=== PATIENT | male | born 1945 | race Caucasian/White ===

== ENCOUNTER 2017-06-27 12:44 | Outpatient (POV) | payer MEDICARE, BC, SELFPAY | END 2017-06-27 15:34 | disposition home or self-care (01) | PROVIDERS: Family Provider Family Medicine; PCP Family Medicine; Visit Provider Urology | DX: N40.1 Benign prostatic hyperplasia with lower urinary tract symptoms (principal); R33.8 Other retention of urine | CPT/HCPCS: 81002; 99213 ==

== ENCOUNTER 2017-07-08 19:47 | Day surgery (SDC) | payer MEDICARE, SELFPAY ==
[2017-07-08 19:57] VITALS: BP 127/79; PULSE 78; RESP 15; TEMP 36.8; O2SAT 93; BMI 21.8
--- NOTE | 2017-07-08 20:13 | XR_ITS ---
XR knee LT 3V HISTORY: Pain following injury ITS.REASON: pain ORDERING PHYSICIAN: Harjeet Pedro MD PATIENT AGE: 72 years COMPARISON: None FINDINGS: No obvious acute fracture or dislocation is evident. There are mild to moderate osteoarthritic changes involving all 3 compartments. Multiple lobular areas of increased density are present along the anterior aspect of the knee in the infrapatellar region consistent with foreign bodies. There is laceration involving the soft tissues at the prepatellar region with overlying bandage artifact. Chondrocalcinosis involves the menisci. IMPRESSION: 1. Multiple foreign bodies in the infrapatellar region with laceration at the prepatellar area. 2. Osteoarthritis. 3. No obvious acute fracture.
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
--- NOTE | 2017-07-08 21:01 | PC.NURSE ---
DR TAYLOR CALLED AND CASE DISCUSSED. DR TAYLOR TO SEE PATIENT
--- NOTE | 2017-07-08 21:13 | XR_ITS ---
XR chest 2V HISTORY: Tobacco use, chest pain ITS.REASON: chest pain ORDERING PHYSICIAN: Harjeet Pedro MD PATIENT AGE: 72 years COMPARISON: 12/09/2014 FINDINGS: The cardiomediastinal silhouette and pulmonary vascularity are within normal limits. Hyperinflation with coarsening of the bronchovascular markings consistent smoking-related lung disease/COPD. There is evidence of old granulomatous disease.. No lobar consolidation or collapse. Degenerative change thoracic spine. No acute bony anomalies of the chest.. IMPRESSION: COPD, no change with no acute finding
--- NOTE | 2017-07-08 21:32 | PC.NURSE ---
DR TAYLOR HERE TO SEE PATIENT . CALLING IN SURGICAL TEAM FOR PATIENT
--- NOTE | 2017-07-08 22:22 | PC.NURSE ---
[phone] - OR team paged per Dr Pedro [phone] - process control tech and Nursing Informatics Clinical Analyst called back. [phone] - anesthesia returned page.
--- NOTE | 2017-07-08 22:28 | PC.NURSE ---
TO SURGERY PER STRETCHER
[2017-07-08 23:40] VITALS: BP 142/47; PULSE 95; RESP 16; TEMP 36.1; O2SAT 95
[2017-07-08 23:50] VITALS: BP 132/87; PULSE 96; RESP 22; O2SAT 90
--- NOTE | 2017-07-08 23:55 | HMH.ANESCL ---
[facility] Anesthesia Checklist - Patient Identification Patient Identification: Arm Band - Structural Data Admitted From: Home Planned Operative Procedure/s: I&D Left leg laceration Consent for Planned Operative Procedure(s) Verified: Yes Verified Documents: Surgical Consent, History and Physical - NPO Status Verified Time NPO: 18:30 (>6 hrs for solids, 5 beers ~3 hrs prior to surgery) - Additional verifications Anesthesia Reactions: No - Airway Assessment C-Spine Mobility Assessed: Yes (MP2) TMJ Mobility Assessed: Yes Dentition: Edentulous - Anesthesia Plan Anesthesia Risk discussed: Yes Anesthesia Plan: Verified ASA Class: III Anesthesia Type: General - Preoperative Comments Pre-Operative Comments: E [facility] Anesthesia HX I have reviewed the patient's past medical history: Yes Medical History: Reports:: Chronic Obstructive Pulmonary Disease (COPD) Denies:: Cancer, Diabetes Mellitus Type 1, Diabetes Mellitus Type 2, MRSA Other Surgeries: Yes: Other (Gallbladder and Low back surgery) Amputation: No
--- NOTE | 2017-07-08 23:59 | P.PN_ITS ---
[facility] Anesthesia Checklist - Patient Identification Patient Identification: Arm Band - Structural Data Admitted From: Home Planned Operative Procedure/s: I&D Left leg laceration Consent for Planned Operative Procedure(s) Verified: Yes Verified Documents: Surgical Consent, History and Physical - NPO Status Verified Time NPO: 18:30 (>6 hrs for solids, 5 beers ~3 hrs prior to surgery) - Additional verifications Anesthesia Reactions: No - Airway Assessment C-Spine Mobility Assessed: Yes (MP2) TMJ Mobility Assessed: Yes Dentition: Edentulous - Anesthesia Plan Anesthesia Risk discussed: Yes Anesthesia Plan: Verified ASA Class: III Anesthesia Type: General - Preoperative Comments Pre-Operative Comments: E [facility] Anesthesia HX I have reviewed the patient's past medical history: Yes Medical History: Reports:: Chronic Obstructive Pulmonary Disease (COPD) Denies:: Cancer, Diabetes Mellitus Type 1, Diabetes Mellitus Type 2, MRSA Other Surgeries: Yes: Other (Gallbladder and Low back surgery) Amputation: No
[2017-07-09] VITALS (7 sets, daily range): BP systolic 124–146; BP diastolic 47–110; PULSE 77–95; RESP 16–21; TEMP 36.1–36.2; O2SAT 92–96
--- NOTE | 2017-07-09 00:01 | P.PN_ITS ---
[facility] Anesthesia Record Part I Intake, IV Amount: 1,300 Estimated blood loss (mL): 10 Urine output (mL): 0 Blood Pressure: 142/47 SaO2: 95 Pulse Rate: 95 Respiratory Rate: 16 Temperature: 97 F Patient is:: Drowsy, Stable Stable to PACU at:: 23:40
--- NOTE | 2017-07-09 00:01 | HMH.ANESII ---
[facility] Anesthesia Record Part II Discharge Time: 00:10 Destination: [facility] PACU nurse assessment reviewed?: Yes Patient Condition:: Good Anesthesia Complications:: None
--- NOTE | 2017-07-09 00:02 | P.PN_ITS ---
[facility] Anesthesia Record Part II Discharge Time: 00:10 Destination: [facility] PACU nurse assessment reviewed?: Yes Patient Condition:: Good Anesthesia Complications:: None
--- NOTE | 2017-07-09 01:23 | SUR.OPER ---
TRI-PANEL 24 KNEE IMMOBILIZER APPLIED OVER DRESSING IN OR
--- NOTE | 2017-07-11 08:40 | HMH.OPNOTE ---
Date of procedure: 07/08/17 Pre-op Diagnosis:: Complex laceration left knee Post-op diagnosis:: same Procedure performed:: Excision, irrigation, debridement, of complex laceration left knee Surgeon:: Harjeet Pedro MD Anesthesia: GETA Estimated blood loss (mL): 5 Operative findings:: There is a complex laceration of the skin, full-thickness, over the left knee. This involved not only the epidermis, dermis, and subcutaneous tissue but extended down into the bursa and extensor tendon of the extensor mechanism down to bone of the patella. Scoring of the cortical bone of the patella was present. The wound was grossly contaminated and foreign bodies were present. Operative note:: The patient was evaluated in the emergency department. Due to the gross contamination of the wound and possibility of this being an open fracture or an open joint, the patient was taken to the operating room emergently. After anesthesia was provided, the wound was irrigated with a dilute Betadine solution followed by full-strength Betadine for the skin away from the actual wound itself. We then inspected the wound. We reviewed the radiographs prior to this certainly the suspicion of large foreign bodies in the wound was present. Inspection of the wound itself showed only small fragments. There was a pouch formed by the skin. The bursa itself have been eroded and the cortex of the anterior patella was scored. This was carefully debrided and brushed to remove foreign bodies. We inspected the soft tissue and remove small bits of gravel but none of the larger fragments as suggested by the x-ray were present, leading us to believe these may actually be fragmented bone beds from the patient's osteoarthritis. We inspected this very carefully to ensure that there were not foreign bodies embedded into the patella tendon that were being missed. We used pulsatile lavage and suction to help clean all the soft tissues as well as the anterior aspect of patella. We ensured that the extensor mechanism is otherwise intact. A saline arthrogram was performed using 100 mL of saline. No return was noted, again leading us to believe that the extensor mechanism had not been penetrated by large foreign bodies. We then debrided the skin edges full-thickness including epidermis, dermis, and subcutaneous tissue as well as resected areas of the bursa and damaged extensor tendon using a 15 blade. Tenotomy type scissors were used as well. The size of the wound was approximately 6 cm x 8 cm. It was closed loosely with 2-0 Vicryl and 2 0 nylon suture. The patient was given Ancef and discharged on Keflex 500 mg every 6 hours Pathology: none sent Condition: stable Disposition: PACU Complications:: No complications
== END 2017-07-09 00:47 | disposition home or self-care (01) ==
LOC: ER 21:23 → SDC 22:38
PROVIDERS: Emergency Provider General Practice; Family Provider Family Medicine; PCP Family Medicine; Visit Provider Orthopaedic Surgery
PROC: (CPT 13121; principal; 2017-07-08 22:30)
DX: S81.022A Laceration with foreign body, left knee, initial encounter; Z72.0 Tobacco use; V59.3XXA Occupant (driver) (passenger) of pick-up truck or van injured in unspecified nontraffic accident, initial encounter; M17.12 Unilateral primary osteoarthritis, left knee; Z23 Encounter for immunization
CPT/HCPCS: 13121; 13122; 71046; 73562; 90714; 96365; 96367; 96375; 99284; J0330; J2405

== ENCOUNTER → 2017-07-10 11:39 | Outpatient (CLI) | payer MEDICARE, SELFPAY ==
--- NOTE | 2017-07-10 11:44 | XR_ITS ---
XR knee LT 2V HISTORY: Follow-up trauma, pain, laceration ITS.REASON: patellar migration ORDERING PHYSICIAN: Harjeet Pedro MD PATIENT AGE: 72 years COMPARISON: 07/08/2017 FINDINGS: There is normal alignment. Previously noted defect along the prepatellar region of the soft tissues not apparent on today's exam. There is a vague lucency at the base of superior patellar spur. Cannot exclude nondisplaced fracture. Multiple hyperdensities are present over the tibial tuberosity region the patella and could be related to foreign bodies or soft tissue calcification. There is a brace present. There are osteoarthritic changes of the lateral compartment with mild chondrocalcinosis laterally IMPRESSION: 1. Normal location of the patella. Possible fracture at the base of the superior spur. 2. No change multiple hyperdensities in the infrapatellar region at the level of the tibial tuberosity
== END ==
PROVIDERS: PCP Family Medicine; Visit Provider Orthopaedic Surgery
DX: S81.022A Laceration with foreign body, left knee, initial encounter (principal)
CPT/HCPCS: 73560

== ENCOUNTER → 2017-07-12 14:58 | Outpatient (CLI) | payer MEDICARE, SELFPAY ==
--- NOTE | 2017-07-12 15:00 | CT_ITS ---
CT KNEE LT ...... Without contrast 3-D VOLUME RENDERING RECONSTRUCTION with shading Ordering Physician: Harjeet Pedro MD Patient Age: 72 years: Male HISTORY: Fall with deep laceration and radiopaque material anterior knee. Favor foreign body material throughout this region but but need to exclude fracture & intra-articular foreign bodies TECHNIQUE: Helical CT scanning performed through the knee. No contrast 3-D volume rendering reconstruction with shading also performed by Dr. Morocho on independent [id number] CPT COMPARISON :Plain films left knee 1 12/18 and 07/10/2017 FINDINGS The series of plain films show the large soft tissue defect anterior to the patella on 07/08/2017 study. Infiltrate in this there is stippled radiopaque material which would favor related to gravel and proximal. Understood the wound was debrided but it appears that these radiopaque elements migrated inferior and lateral from their initial location. To confirm such this CT shows this with with the large 14 mm ovoid calcification residing eating further lateral than it was on 07/10/2017. On this CT it is seen residing lateral to the patellar tendon. Numerous stippled tiny foreign body likely reflecting gravel fragments are evident at the lateral and medial aspect of the patellar tendon and a few overlying at at the tibial tubercle as well. There is associated prominent subcutaneous edema and swelling throughout this region reflecting reactive cellulitis-type changes. Cannot exclude developing abscess but favor cellulitis at this point given its diffuse character. Regarding the knee joint there is a joint effusion with fluid most evident at suprapatellar bursa. No radiopaque foreign bodies are seen within this joint effusion.. Chondrocalcinosis is seen medial and lateral meniscus region. The chondrocalcinosis calcification is seen involving body and posterior horn of medial meniscus more so than lateral meniscus. This appears be a long-standing feature.. Narrowing in mild sclerosis at medial compartment reflecting the arthritic changes here. Tricompartmental marginal osteophytes most evident lateral margin of the joint and as well as patellofemoral joint. Normal position of the patella IMPRESSION 1. prominent stippled radiopaque foreign body material/ (gravel) overlying the patellar tendon,-superficial to the joint.. These innumerable stippled foreign body features are most evident flanking the right & left of the patellar tendon.. Particularly note made of large 14 mm x 10 mm ovoid fragment along the lateral margin of inferior patellar tendon... There is extensive soft tissue edema & cellulitis throughout the anterior aspect of the knee, and overlying tibial tubercle related to this injury and is residual foreign body elements 2.. Underlying Arthritic changes at the right knee evident. Joint space narrowing medial compartment. Tricompartmental marginal osteophytes.Chondrocalcinosis.. Moderate joint effusion. 3.No acute fracture evident nor fracture defect evident. No acute radiopaque intra-articular foreign bodies from recent injury .
== END ==
PROVIDERS: PCP Family Medicine; Visit Provider Orthopaedic Surgery
DX: S81.02 Laceration with foreign body of knee (principal)
CPT/HCPCS: 73700

== ENCOUNTER 2017-07-13 13:24 | Observation (INO) | payer MEDICARE, SELFPAY ==
[2017-07-13] VITALS (20 sets, daily range): BP systolic 104–145; BP diastolic 54–76; PULSE 54–84; RESP 16–22; TEMP 36.4–36.9; O2SAT 93–99; BMI 21.8; BMI 21.9
--- NOTE | 2017-07-13 | XR_ITS ---
XR knee LT 2V HISTORY: Foreign body removal follow-up ITS.REASON: I D LT KNEE, GRAVEL REMOVAL ORDERING PHYSICIAN: Harjeet Pedro MD PATIENT AGE: 72 years COMPARISON: 07/10/2017 FINDINGS: 2 views are obtained. There is open wound now in the prepatellar region. The previously noted radio opaque foreign bodies have been removed. Specifically, the largest foreign body along the proximal tibia is no longer apparent. There are 2 small hyperdensities along the suprapatellar region. These could be related to small residual foreign bodies measuring 1.4 and 3 mm. IMPRESSION: Status post foreign body removal as described above
--- NOTE | 2017-07-13 10:40 | HMH.ANESCL ---
[facility] Anesthesia Checklist - Patient Identification Patient Identification: Arm Band, Verbal (Name & ) - Structural Data Admitted From: Home Planned Operative Procedure/s: i &d knee Consent for Planned Operative Procedure(s) Verified: Yes Verified Documents: Surgical Consent - NPO Status Verified Time NPO: 00:00 - Chart Verification Results Verified: None - Additional verifications Patient : No Anesthesia Reactions: No Hx Blood Transfusions: No Blood Transfusion Reaction: No Cephalosporin Allergy: No Previous Colonoscopy: No - Cardiovascular Assessment Heart Sounds: S1 & S2 Pulse Strength: Strong Pulse Rhythm: Regular - Airway Assessment C-Spine Mobility Assessed: Yes TMJ Mobility Assessed: Yes Dentition: Edentulous - Neurological Assessment Level of Consciousness: Awake, Alert, Appropriate Hx Seizures: No Numbness or tingling in extremities: No - Anesthesia Plan Anesthesia Risk discussed: Yes Anesthesia Plan: Verified ASA Class: II Anesthesia Type: General [facility] Anesthesia HX I have reviewed the patient's past medical history: Yes Medical History: Reports:: Chronic Obstructive Pulmonary Disease (COPD) Denies:: Cancer, Diabetes Mellitus Type 1, Diabetes Mellitus Type 2, MRSA, Seizures Other Medical History: Denies: Blood Transfusion Reaction Laterality Cases: Left: Arthroscopy Knee Other Surgeries: Yes: Other (Gallbladder and Low back surgery) Amputation: No Fractures: Yes (wrist) *Family Hx:: Heart Attack
--- NOTE | 2017-07-13 13:17 | P.PN_ITS ---
[facility] Anesthesia Record Part I Intake, IV Amount: 850 Estimated blood loss (mL): 25 Urine output (mL): 0 Blood Products used (#): none Blood Pressure: 145/64 SaO2: 95 Pulse Rate: 59 Respiratory Rate: 18 Temperature: 97.8 F Patient is:: Drowsy, Nasal O2 Stable to PACU at:: 13:15
--- NOTE | 2017-07-13 13:17 | HMH.ANESII ---
[facility] Anesthesia Record Part II Discharge Time: 13:45 Destination: Medical Surgical Department PACU nurse assessment reviewed?: Yes Patient Condition:: Good Anesthesia Complications:: None
--- NOTE | 2017-07-13 13:53 | PC.NURSE ---
REPORT RECEIVED FROM Kaleigh LEVY RN.
--- NOTE | 2017-07-13 14:20 | HMH.OPNOTE ---
Date of procedure: 07/13/17 Pre-op Diagnosis:: Left knee infection status post complex laceration and retained foreign bodies Post-op diagnosis:: same Procedure performed:: Incision, irrigation, and debridement of left knee infection and removal of foreign bodies Surgeon:: Harjeet Pedro MD [employer] BRANCH MANAGER:: Case Paula Anesthesia: LMA Estimated blood loss (mL): 10 Operative findings:: The patient was taken to the operating room in the left lower extremity was prepped and draped in the usual sterile fashion. The limb was exsanguinated with an Esmarch bandage but bypassed the left knee so as not to spread infection. A preoperative CT scan had been taken and was utilized to help discern the location of retained foreign bodies. A midline incision was made from mid patella to the tibial tubercle through the skin only. Skin flaps were carefully dissected full-thickness and reflected to allow access to the patella tendon. With the aid of intraoperative C arm fluoroscopy, retained bits of gravel were removed. We inspected the suprapatellar pouch, the extensor mechanism, and the anterior surface of the patella as thoroughly as was possible. Low intensity pulsatile lavage was used and a soft bristle brush with dilute Betadine was used to help clean the exposed bone of the anterior surface of the patella. We also used a curette and used sharp dissection to remove contaminated bits of adipose tissue. Debridement was accomplished with a #15 blade, tenotomy scissors, and a curette. Debridement of skin, subcutaneous tissue, and fascial strands was completed. After thorough debridement, we used intraoperative C arm and intraoperative x-rays to evaluate and see if there was any radiographic evidence of any retained foreign body. We inspected the wound and flaps and irrigated it once again. The incisions were closed with 2-0 PDS and 2-0 nylon sutures. A Kia drain was placed. Condition: stable Disposition: PACU Complications:: none
--- NOTE | 2017-07-13 15:19 | SUR.PHASEI ---
07/13/17 1350 Pt transported via bed to room 204 2nd floor med/surg per DOMINGO Gamble and AleeRN at this time. Pt's family at bedside for transfer. Pt left in care of DOMINGO Alvares at bedside/stable.
--- NOTE | 2017-07-13 15:59 | PC.NURSE ---
1430 - PT SITTING UP IN BED EATING A REG DIET AND DRINKING COLD LIQUIDS. NO C/O OF N/V VERBALIZED. PT A&Ox3 IN NO ACUTE DISTRESS. VSS. DENIES PAIN.
--- NOTE | 2017-07-13 16:01 | SUR.OPER ---
PROCEDURE: IRRIGATION AND DEBRIDEMENT LEFT KNEE
--- NOTE | 2017-07-13 17:16 | PC.NURSE ---
PT WAS ADMITTED POST SURGERY THIS AFTERNOON. PT HAS BEEN A&Ox3 IN NAD. VSS. AFEBRILE. HEART RATE REG. LUNGS CTA. (L) FA IV INFUSING FLUIDS /S DIFFICULTY. NO S/S OF INFILTRATION. ABD SOFT AND NONTENDER WITH HYPOACTIVE BOWEL SOUNDS x4 QUADS. (L) KNEE DRSG CLEAN, DRY AND INTACT. KNEE IMMOBILIZER IN PLACE. THIGH HIGH SCDS IN PLACE TO RLE. WILL CONTINUE TO MONITOR.
--- NOTE | 2017-07-13 19:04 | PC.NURSE ---
REPORT GIVEN TO [address]
[2017-07-14] VITALS: BP 120/63; PULSE 68; RESP 20; TEMP 38.2; O2SAT 90
[2017-07-14 04:00] VITALS: BP 121/58; PULSE 77; RESP 18; TEMP 37.3; O2SAT 91
--- NOTE | 2017-07-14 04:47 | PC.NURSE ---
PT HAD ONE EPISODE OF PAIN ON EVENING SHIFT AND RECIEVED LORTAB. PT HAD GOOD RESULTS. LEFT LEG WITH IMMOBILIZER IN PLACE. 1+ EDMEA NOTED LEFT ANKLE WITH 2+ PEDAL PULSES NOTED. PT SITTING UP ON SIDE OF BED THIS AM WITHOUT COMPLAINTS. AT [facility].
[2017-07-14 08:00] VITALS: BP 117/69; PULSE 86; RESP 18; TEMP 37.3; O2SAT 90
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
--- NOTE | 2017-07-14 09:55 | P.CONPHA_ITS ---
[facility] Pharmacy VTE Monitoring - Patient Demographics Admission date: 07/13/17 Report Date: 07/14/17 Time: 09:51 Allergies/Adverse Reactions: No Known Allergies Allergy (Verified 07/12/17 15:01) Height: 1.78 m Weight: 69.57 kg - VTE Risk Was VTE Risk Assessment Performed: Yes VTE Score: 4 VTE Risk Level: Low Risk - Prophylaxis VTE Prophylaxis Ordered?: Yes Types of VTE Prophylaxis: TEDS Knee High Location of Applied Device: Right Leg - VTE Diagnosis Confirmed Treatment or plan recommended: Continue Current Treatment
== END 2017-07-14 14:48 | disposition home or self-care (01) ==
LOC: 2ND 13:33
PROVIDERS: Admitting Provider Orthopaedic Surgery; Family Provider Family Medicine; PCP Family Medicine; Visit Provider Orthopaedic Surgery
DX: S81.022A Laceration with foreign body, left knee, initial encounter (principal); Z72.0 Tobacco use; M17.12 Unilateral primary osteoarthritis, left knee; V59.3XXA Occupant (driver) (passenger) of pick-up truck or van injured in unspecified nontraffic accident, initial encounter
CPT/HCPCS: 11043; 73560; 76000; 93005; 96374; G0378; J0131

== ENCOUNTER 2017-07-26 09:21 | Day surgery (SDC) | payer MEDICARE, SELFPAY ==
[2017-07-25 15:04] VITALS: BMI 21.8
[2017-07-26] VITALS (11 sets, daily range): BP systolic 118–155; BP diastolic 69–88; PULSE 64–81; RESP 18–20; TEMP 36.3–43; O2SAT 92–97
[2017-07-26 10:17] LABS: Basophils # 0.1 K/mm3 (0-0.2); Basophils % 0.6 % (0.1-2.0); Eosinophils # 0.5 K/mm3 (0.0-0.4); Eosinophils % 5.4 % (0.1-12.0); Hematocrit 41.3 % (42.0-52.0); Lymphocytes # 2.1 K/mm3 (0.7-4.5); Lymphocytes % 25.2 K/mm3 (10-50); Mean Corpuscular HGB Conc 38.7 g/dL (31.8-35.4); Mean Corpuscular Hemoglobin 34.9 pg (27.0-31.2); Mean Platelet Volume 7.4 fl (7.4-10.4); Monocytes # 0.5 K/mm3 (0.1-1.0); Monocytes % 6.2 % (1.7-9.3); Neutrophils # 5.3 K/mm3 (1.8-7.8); Neutrophils % 62.6 % (37.0-80.0); Platelet Count 305 K/mm3 (142-424); Red Blood Count 4.59 M/mm3 (4.60-6.20); Red Cell Distribution Width 12.6 % (11.5-17.5); White Blood Count 8.5 K/mm3 (4.8-10.8)
--- NOTE | 2017-07-26 10:18 | HMH.ANESCL ---
[facility] Anesthesia Checklist - Patient Identification Patient Identification: Arm Band - Structural Data Admitted From: Home Planned Operative Procedure/s: I&D left knee Consent for Planned Operative Procedure(s) Verified: Yes Verified Documents: Surgical Consent, History and Physical - NPO Status Verified Time NPO: 07:00 (coffee with cream) - Additional verifications Anesthesia Reactions: No - Airway Assessment C-Spine Mobility Assessed: Yes (Mp2) TMJ Mobility Assessed: Yes Dentition: Edentulous - Neurological Assessment Level of Consciousness: Awake, Alert - Anesthesia Plan Anesthesia Risk discussed: Yes Anesthesia Plan: Verified ASA Class: III Anesthesia Type: General [facility] Anesthesia HX I have reviewed the patient's past medical history: Yes Medical History: Reports:: Chronic Obstructive Pulmonary Disease (COPD) Denies:: Cancer, Diabetes Mellitus Type 1, Diabetes Mellitus Type 2, MRSA, Seizures Other Medical History: Reports: Arthritis, Cataracts, Sinus Problems. Denies: Blood Transfusion Reaction Laterality Cases: Left: Arthroscopy Knee, Cataract Other Surgeries: Yes: Other Amputation: No Fractures: Yes (wrist) *Family Hx:: Coronary Artery Disease, Heart Attack, Hypertension
[2017-07-26 10:44] LABS: Anion Gap 11.2 mEq/L (5-15); Blood Urea Nitrogen 11 mg/dL (7-18); Carbon Dioxide 30 mmol/L (21.0-32.0); Chloride 100 mmol/L (98-107); Creatinine Clearance Estimated 64 mL/min (0-300); Creatinine,Serum 0.63 mg/dL (0.70-1.30); Estimated Glomerular Filt Rate 125 ml/min (>60); GFR (African American) 151 ML/MIN (>60); Glucose 94 mg/dL (74-106); Potassium 4.2 mmoL/L (3.5-5.1); Sodium 137 mmol/L (136-145)
[2017-07-26 10:51] LABS: CKMB Relative Index 1.3 U/L (0-4.0); Creatine Kinase 40 U/L (39-308); Creatine Kinase MB 0.5 mg/ml (0.0-3.6); Troponin I < 0.02 ng/ml (0.00-0.06)
[2017-07-26 13:22] LABS: Erythrocyte Sedimentation Rate 85 mm/hr (0-20)
--- NOTE | 2017-07-26 13:39 | HMH.ANESI ---
[facility] Anesthesia Record Part I Intake, IV Amount: 600 Estimated blood loss (mL): 10 Urine output (mL): 12 Blood Products used (#): none Blood Pressure: 144/77 SaO2: 92 Pulse Rate: 65 Respiratory Rate: 18 Temperature: 97.4 F Patient is:: Awake, Stable Stable to PACU at:: 13:34
--- NOTE | 2017-07-26 13:40 | HMH.ANESII ---
[facility] Anesthesia Record Part II Discharge Time: 14:04 Destination: Surgical Day Care (OP Surgery) PACU nurse assessment reviewed?: Yes Patient Condition:: Good Anesthesia Complications:: None
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
== END 2017-07-26 14:47 | disposition home or self-care (01) ==
PROVIDERS: Family Provider Family Medicine; PCP Family Medicine; Visit Provider Orthopaedic Surgery
DX: T81.33XA Disruption of traumatic injury wound repair, initial encounter (principal); V59.3XXA Occupant (driver) (passenger) of pick-up truck or van injured in unspecified nontraffic accident, initial encounter; Z72.0 Tobacco use; M17.12 Unilateral primary osteoarthritis, left knee
CPT/HCPCS: 11042; 80048; 82550; 82553; 84484; 85025; 85651; 86140; 87070; 87205; 96374; A4649; J3370

== ENCOUNTER 2017-08-05 22:37 | Observation (INO) | payer MEDICARE, SELFPAY ==
[2017-08-05 22:40] VITALS: BP 128/73; PULSE 93; RESP 14; TEMP 36.9; O2SAT 94; BMI 23.5
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
[2017-08-05 23:36] LABS: Basophils # 0.1 K/mm3 (0-0.2); Basophils % 0.4 % (0.1-2.0); Eosinophils # 0.5 K/mm3 (0.0-0.4); Eosinophils % 3.8 % (0.1-12.0); Hematocrit 34.8 % (42.0-52.0); Hemoglobin 11.5 g/dL (14.1-18.0); Lymphocytes # 2.4 K/mm3 (0.7-4.5); Lymphocytes % 20.4 K/mm3 (10-50); Mean Corpuscular HGB Conc 32.9 g/dL (31.8-35.4); Mean Corpuscular Hemoglobin 29.1 pg (27.0-31.2); Mean Corpuscular Volume 88.6 fl (80-94); Mean Platelet Volume 7.4 fl (7.4-10.4); Monocytes # 0.6 K/mm3 (0.1-1.0); Monocytes % 5.4 % (1.7-9.3); Neutrophils # 8.3 K/mm3 (1.8-7.8); Platelet Count 355 K/mm3 (142-424); Red Blood Count 3.93 M/mm3 (4.60-6.20); Red Cell Distribution Width 12.5 % (11.5-17.5); White Blood Count 11.9 K/mm3 (4.8-10.8)
[2017-08-05 23:53] LABS: Lactic Acid 1.1 mmol/L (0.4-2.0)
[2017-08-06 00:14] LABS: Alanine Aminotransferase 34 U/L (12-78); Albumin Level 2.7 gm/dL (3.4-5.0); Albumin/Globulin Ratio 0.7 (1.1-1.8); Alkaline Phosphatase 97 U/L (46-116); Anion Gap 11.1 mEq/L (5-15); Aspartate Amino Transferase 35 U/L (15-37); Bilirubin,Total 0.4 mg/dL (0.2-1.0); Blood Urea Nitrogen 15 mg/dL (7-18); Calcium 8.2 mg/dL (8.5-10.1); Carbon Dioxide 30 mmol/L (21.0-32.0); Chloride 100 mmol/L (98-107); Creatinine Clearance Estimated 63 mL/min (0-300); Creatinine,Serum 0.63 mg/dL (0.70-1.30); Estimated Glomerular Filt Rate 125 ml/min (>60); GFR (African American) 151 ML/MIN (>60); Globulin 3.9 gm/dl (1.3-3.2); Glucose 102 mg/dL (74-106); Potassium 4.1 mmoL/L (3.5-5.1); Sodium 137 mmol/L (136-145); Total Protein,Serum 6.6 gm/dL (6.4-8.2)
[2017-08-06 00:17] LABS: D-Dimer > 5000 (0-400)
--- NOTE | 2017-08-06 00:31 | PC.NURSE ---
Dr Lawler Called to Pharmacy for confirmation of Lovenox dosing of 70mg
--- NOTE | 2017-08-06 00:51 | PC.NURSE ---
leg dressed with reapplication of splint
[2017-08-06 01:07] VITALS: BP 122/72; PULSE 77; RESP 16; TEMP 37.2; O2SAT 94
[2017-08-06 01:20] VITALS: BMI 23.6
[2017-08-06 02:05] VITALS: BP 125/67; PULSE 82; RESP 16; TEMP 36.7; O2SAT 93
[2017-08-06 02:14] VITALS: O2SAT 93
[2017-08-06 03:47] VITALS: BP 106/52; PULSE 82; RESP 18; TEMP 36.8; O2SAT 92
--- NOTE | 2017-08-06 03:50 | PC.NURSE ---
NO COMPLAINTS STATED. DRESSING NOTED ON LLE, CDI. LLE NOTED SWOLLEN, WITH RED COLORATION. VSS. WILL CONTINUE TO MONITOR.
[2017-08-06 06:07] LABS: Basophils # 0.1 K/mm3 (0-0.2); Basophils % 0.6 % (0.1-2.0); Eosinophils # 0.5 K/mm3 (0.0-0.4); Eosinophils % 4.4 % (0.1-12.0); Hematocrit 32.3 % (42.0-52.0); Hemoglobin 10.6 g/dL (14.1-18.0); Lymphocytes # 2.7 K/mm3 (0.7-4.5); Mean Corpuscular HGB Conc 32.7 g/dL (31.8-35.4); Mean Corpuscular Hemoglobin 28.8 pg (27.0-31.2); Mean Corpuscular Volume 88.2 fl (80-94); Mean Platelet Volume 7.2 fl (7.4-10.4); Monocytes # 0.6 K/mm3 (0.1-1.0); Monocytes % 5.4 % (1.7-9.3); Neutrophils # 6.6 K/mm3 (1.8-7.8); Neutrophils % 63.6 % (37.0-80.0); Platelet Count 352 K/mm3 (142-424); Red Blood Count 3.66 M/mm3 (4.60-6.20); Red Cell Distribution Width 12.5 % (11.5-17.5); White Blood Count 10.4 K/mm3 (4.8-10.8)
[2017-08-06 06:15] LABS: INR 1.07 (0.9-1.1); Prothrombin Time 11.6 seconds (9.4-11.8)
[2017-08-06 06:17] LABS: Anion Gap 7.8 mEq/L (5-15); Blood Urea Nitrogen 13 mg/dL (7-18); Carbon Dioxide 30 mmol/L (21.0-32.0); Chloride 102 mmol/L (98-107); Creatinine Clearance Estimated 64 mL/min (0-300); Creatinine,Serum 0.55 mg/dL (0.70-1.30); Estimated Glomerular Filt Rate 146 ml/min (>60); GFR (African American) 177 ML/MIN (>60); Glucose 99 mg/dL (74-106); Potassium 3.8 mmoL/L (3.5-5.1); Sodium 136 mmol/L (136-145)
--- NOTE | 2017-08-06 07:30 | HMH.HPDC ---
General - General Admission date: 08/06/17 Discharge date: 08/06/17 *Admission Date: 08/06/17 *Chief complaint: Left leg swelling *History of present illness: 72-year-old male who is undergone recent surgery for debridement of wound of the left knee. Debridement was performed by Dr. Sheth. Patient's son contacted Dr. Gongora yesterday because of the level of swelling in the patient's leg. He was instructed to present to the emergency department because of concern of DVT. Patient denies pain in the left leg admits to significant swelling. Patient is on Keflex as an antibiotic. In the emergency department patient was evaluated. Wound was examined and not felt to have any signs of cellulitis but the leg was significantly swollen compared to the right and suspicion of DVT is high. Patient was given cutaneous Lovenox at a dose of 1 mg/kg and has been admitted for Doppler of the affected extremity. [facility] History Medical History: Reports:: Chronic Obstructive Pulmonary Disease (COPD) Denies:: Cancer, Diabetes Mellitus Type 1, Diabetes Mellitus Type 2, MRSA, Seizures Other Medical History: Reports: Arthritis, Cataracts, Sinus Problems. Denies: Blood Transfusion Reaction Laterality Cases: Left: Arthroscopy Knee Other Surgeries: Yes: Other Amputation: Yes (left middle finger) Fractures: Yes (wrist) - *Social History Educational Level: Attended High School Smoking Status: Current every day smoker Tobacco Type: cigarettes # Packs/Day (cigarettes): 1 #Yrs smoked (if former smoker): 60 Alcohol Intake: never Alcohol Intake Frequency:: a few times a week Substance Use Type: denies use Occupational Status: retired Housing: house Household Members: spouse - Psychiatric History Expresses thoughts of harming self/others: None Suicide Plan Description: No Plan *Family Hx:: Coronary Artery Disease, Heart Attack, Hypertension Review of Systems - Review of Systems Review of systems:: pertinent systems reviewed and negative unless documented below See HPI - Constitutional Denies body ache(s), Denies chills, Denies fever(s) - *Neurologic Denies seizure-like activity Exam Vital signs and Labs for Last 24 Hours: Temp Pulse Resp BP Pulse Ox 98.2 F 82 18 106/52 92 L 08/06/17 03:47 08/06/17 03:47 08/06/17 03:47 08/06/17 03:47 08/06/17 03:47 Laboratory Results - last 24 hr 08/06/17 05:40: WBC 10.4, RBC 3.66 L, Hgb 10.6 L, Hct 32.3 L, MCV 88.2, MCH 28.8, MCHC 32.7, RDW 12.5, Plt Count 352, MPV 7.2 L, Neut % (Auto) 63.6, Lymph % (Auto) 26.0, [place] % (Auto) 5.4, Eos % (Auto) 4.4, Baso % (Auto) 0.6, Neut # (Auto) 6.6, Lymph # (Auto) 2.7, [place] # (Auto) 0.6, Eos # (Auto) 0.5 H, Baso # (Auto) 0.1 08/06/17 05:40: PT 11.6, INR 1.07 08/06/17 05:40: Sodium 136, Potassium 3.8, Chloride 102, Carbon Dioxide 30, Anion Gap 7.8, BUN 13, Creatinine 0.55 L, Estimated Creat Clear 64, Estimated GFR 146, Est GFR ( Amer) 177, Glucose 99 I & O for Last 24 hours: Intake & Output 08/03/17 08/04/17 08/05/17 08/06/17 11:59 11:59 11:59 11:59 Output Total 0 / 0 Balance 0 / 0 Weight 151 lb 2 oz - Constitutional no acute distress - *Routine Respiratory Exam Present: CTA bilaterally - *Routine Cardiovascular Exam Present: RRR. Absent: murmur, gallop, rubs - *Routine Extremities Exam Comments: Left leg is bandaged from the mid thigh to the mid calf. Patient has noticeable swelling both above and below the bandage to the level of the foot. Swelling is nontender. Skin is warm to the touch in both lower extremities. There is minimal erythema of the skin. Hospital Course Hospital Course: Patient was admitted for doppler of left leg which showed extensive DVT of multiple veins. Patient was given Lovenox SC while hospitalized and started on Eliquis 10mg bid x7 days prior to discharge. Patient was given samples of Eliquis. He will follow up in the office Monday with me and also with Dr. Pedro. Results Labs
--- NOTE | 2017-08-06 07:34 | P.SWB_ITS ---
General - General Admission date: 08/06/17 Discharge date: 08/06/17 *Admission Date: 08/06/17 *Chief complaint: Left leg swelling *History of present illness: 72-year-old male who is undergone recent surgery for debridement of wound of the left knee. Debridement was performed by Dr. Sheth. Patient's son contacted Dr. Gongora yesterday because of the level of swelling in the patient's leg. He was instructed to present to the emergency department because of concern of DVT. Patient denies pain in the left leg admits to significant swelling. Patient is on Keflex as an antibiotic. In the emergency department patient was evaluated. Wound was examined and not felt to have any signs of cellulitis but the leg was significantly swollen compared to the right and suspicion of DVT is high. Patient was given cutaneous Lovenox at a dose of 1 mg /kg and has been admitted for Doppler of the affected extremity. [facility] History Medical History: Reports:: Chronic Obstructive Pulmonary Disease (COPD) Denies:: Cancer, Diabetes Mellitus Type 1, Diabetes Mellitus Type 2, MRSA, Seizures Other Medical History: Reports: Arthritis, Cataracts, Sinus Problems. Denies: Blood Transfusion Reaction Laterality Cases: Left: Arthroscopy Knee Other Surgeries: Yes: Other Amputation: Yes (left middle finger) Fractures: Yes (wrist) - *Social History Educational Level: Attended High School Smoking Status: Current every day smoker Tobacco Type: cigarettes # Packs/Day (cigarettes): 1 #Yrs smoked (if former smoker): 60 Alcohol Intake: never Alcohol Intake Frequency:: a few times a week Substance Use Type: denies use Occupational Status: retired Housing: house Household Members: spouse - Psychiatric History Expresses thoughts of harming self/others: None Suicide Plan Description: No Plan *Family Hx:: Coronary Artery Disease, Heart Attack, Hypertension Review of Systems - Review of Systems Review of systems:: pertinent systems reviewed and negative unless documented below See HPI - Constitutional Denies body ache(s), Denies chills, Denies fever(s) - *Neurologic Denies seizure-like activity Exam Vital signs and Labs for Last 24 Hours: Temp Pulse Resp BP Pulse Ox 98.2 F 82 18 106/52 92 L 08/06/17 03:47 08/06/17 03:47 08/06/17 03:47 08/06/17 03:47 08/06/17 03:47 Laboratory Results - last 24 hr 08/06/17 05:40: WBC 10.4, RBC 3.66 L, Hgb 10.6 L, Hct 32.3 L, MCV 88.2, MCH 28.8 , MCHC 32.7, RDW 12.5, Plt Count 352, MPV 7.2 L, Neut % (Auto) 63.6, Lymph % ( Auto) 26.0, Shoshone % (Auto) 5.4, Eos % (Auto) 4.4, Baso % (Auto) 0.6, Neut # (Auto ) 6.6, Lymph # (Auto) 2.7, Shoshone # (Auto) 0.6, Eos # (Auto) 0.5 H, Baso # (Auto) 0.1 08/06/17 05:40: PT 11.6, INR 1.07 08/06/17 05:40: Sodium 136, Potassium 3.8, Chloride 102, Carbon Dioxide 30, Anion Gap 7.8, BUN 13, Creatinine 0.55 L, Estimated Creat Clear 64, Estimated GFR 146, Est GFR ( Amer) 177, Glucose 99 I & O for Last 24 hours: Intake & Output 08/03/17 08/04/17 08/05/17 08/06/17 11:59 11:59 11:59 11:59 Output Total 0 / 0 Balance 0 / 0 Weight 151 lb 2 oz - Constitutional no acute distress - *Routine Respiratory Exam Present: CTA bilaterally - *Routine Cardiovascular Exam Present: RRR. Absent: murmur, gallop, rubs - *Routine Extremities Exam Comments: Left leg is bandaged from the mid thigh to the mid calf. Patient has noticeable swelling both above and below the bandage to the
[2017-08-06 08:00] VITALS: BP 97/58; PULSE 87; RESP 18; TEMP 36.7; O2SAT 90
--- NOTE | 2017-08-06 08:00 | NVE_ITS ---
Venous Exam Indications: 729.5 Pain in limb. 729.81 Swelling of limb. IMPRESSIONS Acute, occlusive deep vein thrombosis involving the left common femoral vein, left femoral vein, left popliteal vein, Left saphenofemoral junction, Left profunda femoral, Left posterior tib, Left peroneal, Left gastrocnemius, and Left soleal. Acute occlusive superficial vein thrombosis involving the greater saphenous vein at the thigh. Complete lower extremity venous duplex evaluation. Doppler flow study including spectral analysis, color and zuniga scale imaging. Location: Vascular laboratory. Patient status: Inpatient. CRITICAL FINDINGS - Reported to: RN and Dr. Duran - Read back and verified. - 08/06/2017 - 2:01 PM - DVT/SVT Tables: Venous flow and imaging: + + + + + Location Overall Flow properties Comments + + + + + Left common Totally Absent; not femoral occluded spontaneous; no augmentation; noncompressible + + + + + Left Totally Absent; not saphenofemoral occluded spontaneous; no junction augmentation; noncompressible + + + + + Left profunda Likely Absent; not femoral occluded spontaneous; no augmentation; noncompressible + + + + + Left femoral Totally Absent; not occluded spontaneous; no augmentation; noncompressible + + + + + Left greater Partially Absent ; not Occluded at the saphenous occluded spontaneous; no thigh. Normal augmentation; compressibility and noncompressible color flow demonstrated at the calf. + + + + + Left popliteal Absent; not spontaneous; no augmentation; noncompressible + + + + + Left posterior Absent; not tibial spontaneous; no augmentation;
[2017-08-06 08:23] VITALS: O2SAT 96
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
== END 2017-08-06 14:59 | disposition home or self-care (01) ==
LOC: ER 23:29 → 2ND 08-06 00:53
PROVIDERS: Admitting Provider Family Medicine; Emergency Provider Emergency Medicine; Family Provider Family Medicine; PCP Family Medicine; Visit Provider Family Medicine
DX: I82.4Y2 Acute embolism and thrombosis of unspecified deep veins of left proximal lower extremity (principal); J44.9 Chronic obstructive pulmonary disease, unspecified; F17.210 Nicotine dependence, cigarettes, uncomplicated; Z89.022 Acquired absence of left finger(s); Z79.899 Other long term (current) drug therapy; Z82.49 Family history of ischemic heart disease and other diseases of the circulatory system; Z87.828 Personal history of other (healed) physical injury and trauma
CPT/HCPCS: 36415; 80048; 80053; 83605; 85025; 85378; 85610; 87040; 93971; 96372; 99282; G0378

== ENCOUNTER → 2017-09-07 10:12 | Outpatient (REF) | payer MEDICARE, SELFPAY | LOC: LAB 10:12 | PROVIDERS: Visit Provider Orthopaedic Surgery | DX: L03.116 Cellulitis of left lower limb (principal) | CPT/HCPCS: 87070; 87077; 87186; 87205 ==

== ENCOUNTER → 2019-01-22 13:03 | Outpatient (CLI) | payer MEDICARE, SELFPAY ==
--- NOTE | 2019-01-22 | US_ITS ---
US Arterial Lower Ext Rest History: Current smoker. Hypertension bilateral rest pain bilateral claudication no previous studies ORDERING PHYSICIAN: Case Duran MD PATIENT AGE: 73 years TECHNIQUE: Segmental pressures obtained of both right and left leg. These are compared to brachial blood pressure to yield index at each level sampled including summary OLLIE. The data sheets from the procedure are available in PACS FINDINGS Rest study only performed today No prior studies available for comparison. Blood pressures reported are in millimeters mercury. RIGHT OLLIE = 1.0. RIGHT TBI is 0.8. Brachial BP: 156 Thigh BP: 145 with index 0.93 Calf BP: 141 with index 0.90 Ankle PT: 153 with index 0.98 Ankle DP : 160 with index 1.03 Digit =123 with index 0.79 LEFT OLLIE = 1.0. LEFT OLLIE = 0.8 Brachial BPD: 148 Thigh BP: 147 with index 0.94 Calf BP: 148 with index 0.95 Ankle PT:163 with index 1.04 Ankle DP: 162 with index 1.04 Digit = 128 with index 0.82 Pulses and waveforms: Normal bilaterally IMPRESSION: ......... Normal pulses and waveforms bilaterally Right OLLIE = 1.0. Right TBI is 0.8. Left OLLIE = 1.0. Left OLLIE = 0.8
== END ==
PROVIDERS: PCP Family Medicine; Visit Provider Family Medicine
DX: R29.898 Other symptoms and signs involving the musculoskeletal system (principal); M79.605 Pain in left leg; M79.604 Pain in right leg; R09.89 Other specified symptoms and signs involving the circulatory and respiratory systems
CPT/HCPCS: 93923

== ENCOUNTER → 2019-01-25 10:11 | Outpatient (CLI) | payer MEDICARE, SELFPAY ==
--- NOTE | 2019-01-25 10:20 | XR_ITS ---
EXAM: XR lumbar spine 6V w bending HISTORY: ITS.REASON: NEUROGENIC CLAUDICATION ORDERING PHYSICIAN: Case Duran MD PATIENT AGE: 73 years COMPARISON: 05/08/2013. FINDINGS: There is stable moderate osteopenia. There is also stable several millimeter posterior subluxation of L2 on L3. Vertebral body heights are stable. There is no acute fracture. There is generalized moderate to severe loss of disc space height at L2 through L5 levels with prominent anterior spur and right-sided spur at L2-3. 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 There is no associated subluxation of L5 on S1. There is facet hypertrophy bilaterally at L4-5 and L5-S1. Clips suggest cholecystectomy and there are prostate gland calcifications. Impression: Overall no change. No acute process. Multiple levels of chronic intervertebral osteochondrosis with associated stable mild posterior listhesis of L2 on L3. Probable stable left L5 spondylolysis without spondylolisthesis.
== END ==
PROVIDERS: PCP Family Medicine; Visit Provider Family Medicine
DX: M48.062 Spinal stenosis, lumbar region with neurogenic claudication (principal)
CPT/HCPCS: 72114

== ENCOUNTER → 2022-08-03 01:00 | Outpatient (CLI) | payer MEDICARE, SELFPAY | PROVIDERS: PCP Physician Assistant; Visit Provider Physician Assistant | DX: S81.022A Laceration with foreign body, left knee, initial encounter (principal) ==

== ENCOUNTER → 2022-08-03 11:00 | Outpatient (CLI) | payer MEDICARE, SELFPAY ==
[2022-08-03 19:15] LABS: Alanine Aminotransferase 16 U/L (12-78); Albumin Level 4.2 g/dl (3.5-5.0); Albumin/Globulin Ratio 1.4 (1.1-1.8); Alkaline Phosphatase 74 U/L (38-126); Anion Gap 11.4 mEq/L (5-15); Aspartate Amino Transferase 30 U/L (17-59); Bilirubin,Total 0.4 mg/dl (0.2-1.3); Blood Urea Nitrogen 16 mg/dl (9-20); Calcium 8.7 mg/dl (8.4-10.2); Carbon Dioxide 30 mmol/L (22.0-30.0); Chloride 103 mmol/L (98-107); Cholesterol 180 mg/dl (140-200); Estimated Glomerular Filt Rate 109 ml/min (>60); GFR (African American) 132 ML/MIN (>60); Globulin 3.1 g/dL (1.3-3.2); Glucose 95 mg/dl (74-100); Potassium 4.4 mmoL/L (3.5-5.1); Sodium 140 mmol/L (136-145); Total Protein,Serum 7.3 g/dl (6.3-8.2); Triglycerides 132 mg/dl (30-150); VLDL Cholesterol 26 mg/dL (0-40)
[2022-08-03 19:26] LABS: Basophils # 0.1 K/mm3 (0-0.2); Basophils % 1.2 % (0.1-2.0); Direct LDL Cholesterol 112.84 mg/dL (100-129); Eosinophils # 0.3 K/mm3 (0.0-0.4); Eosinophils % 3.2 % (0.1-12.0); Hematocrit 47.2 % (42.0-52.0); Hemoglobin 15.2 g/dL (14.1-18.0); Lymphocytes # 2.1 K/mm3 (0.7-4.5); Lymphocytes % 19.9 % (10-50); Mean Corpuscular HGB Conc 32.2 g/dL (31.8-35.4); Mean Corpuscular Hemoglobin 28.5 pg (27.0-31.2); Mean Corpuscular Volume 88.5 fl (80-94); Mean Platelet Volume 9.1 fl (7.4-10.4); Monocytes # 0.4 K/mm3 (0.1-1.0); Monocytes % 4.1 % (1.7-9.3); Neutrophils # 7.7 K/mm3 (1.8-7.8); Neutrophils % 71.5 % (37.0-80.0); Platelet Count 377 K/mm3 (142-424); Red Blood Count 5.34 M/mm3 (4.60-6.20); Red Cell Distribution Width 13.4 % (11.5-17.5); White Blood Count 10.7 K/mm3 (4.8-10.8)
[2022-08-03 19:32] LABS: 25-OH Vitamin D, Total 37.7 ng/mL (30-100)
[2022-08-03 19:47] LABS: Prostate Specific Ag Screen 5.7 ng/ml (0.0-4.0); Thyroid Stimulating Hormone 1.45 uIU/mL (0.465-4.68)
[2022-08-03 20:12] LABS: Chol/HDL Ratio 4.7 (1-3.5); HDL Cholesterol 38 mg/dl (40-60)
== END ==
PROVIDERS: PCP Physician Assistant; Visit Provider Physician Assistant
DX: S81.022A Laceration with foreign body, left knee, initial encounter (principal); Z00.00 Encounter for general adult medical examination without abnormal findings; R53.83 Other fatigue; E78.5 Hyperlipidemia, unspecified; Z12.5 Encounter for screening for malignant neoplasm of prostate; E55.9 Vitamin D deficiency, unspecified
CPT/HCPCS: 80053; 80061; 82306; 84443; 85025; G0103

== ENCOUNTER → 2023-01-24 08:56 | Day surgery (SDC) | payer MEDICARE, SELFPAY | PROVIDERS: PCP Physician Assistant; Visit Provider Ophthalmology | DX: Z53.8 Procedure and treatment not carried out for other reasons (principal) ==

== ENCOUNTER 2023-01-24 10:09 | Day surgery (SDC) | payer MEDICARE, SELFPAY ==
[2023-01-23 10:49] VITALS: BMI 20.7
[2023-01-23 10:52] VITALS: BMI 20.7
[2023-01-24 09:55] VITALS: BP 130/80; PULSE 64; RESP 18; TEMP 36.6; O2SAT 96
[2023-01-24 11:18] VITALS: BP 130/80; PULSE 64; RESP 18; TEMP 36.6; O2SAT 96
== END 2023-01-24 11:18 | disposition home or self-care (01) ==
LOC: OUTP 10:10
PROVIDERS: PCP Physician Assistant; Visit Provider Ophthalmology
PROC: (CPT 66821; principal; 2023-01-24 09:00)
DX: H26.40 Unspecified secondary cataract (principal)
CPT/HCPCS: 66821

== ENCOUNTER 2024-06-28 13:51 | Emergency (ER) | payer MEDICARE, SELFPAY ==
[2024-06-28] VITALS (18 sets, daily range): BP systolic 85–157; BP diastolic 38–135; PULSE 82–104; RESP 20; TEMP 37–39.6; O2SAT 90–98; BMI 23.5
--- NOTE | 2024-06-28 15:13 | XR_ITS ---
FINAL REPORT CLINICAL HISTORY: resp distress, fever COMPARISON: None FINDINGS: The heart size is normal. The mediastinum is normal. There is extensive coarse interstitial opacity in both lungs, likely chronic fibrosis. Lucency in the upper lobes probably represent centrilobular emphysema. There are no pleural effusions. There is no pneumothorax. There is no osseous abnormality. IMPRESSION: No acute cardiopulmonary process. Reviewed, Interpreted and Dictated by Sylvester Trujillo MD Transcribed by Tabitha Wise Authenticated and . [facility]
[2024-06-28] MEDS: ACETAMINOPHEN 1,000MG/100ML VIAL 1000 MG IV (15:31)
[2024-06-28] MEDS: LACTATED RINGERS 1000ML 1,980 ML 990 ML IV (15:32)
[2024-06-28] MEDS: METHYLPREDNISOLONE SOD SUCC 125MG VIAL 125 MG IV (15:32)
[2024-06-28 15:34] LABS: Coronavirus 19, PCR Not Detected (NotDetected); Influenza A, PCR Not Detected (NotDetected); Influenza B, PCR Not Detected (NotDetected); Microscopic, Urine URINE MICROSCOPIC (MICROSCOPIC)
[2024-06-28 15:36] LABS: Basophils # 0.1 K/mm3 (0-0.2); Basophils % 0.8 % (0.1-2.0); Eosinophils % 0.4 % (0.1-12.0); Hematocrit 40.4 % (42.0-52.0); Hemoglobin 13.7 g/dL (14.1-18.0); Lymphocytes # 0.8 K/mm3 (0.7-4.5); Lymphocytes % 8.6 % (10-50); Mean Corpuscular HGB Conc 33.9 g/dL (31.8-35.4); Mean Corpuscular Hemoglobin 30.2 pg (27.0-31.2); Mean Corpuscular Volume 89.2 fl (80-94); Monocytes # 0.4 K/mm3 (0.1-1.0); Monocytes % 4.7 % (1.7-9.3); Neutrophils # 7.7 K/mm3 (1.8-7.8); Neutrophils % 85.2 % (37.0-80.0); Platelet Count 233 K/mm3 (142-424); Red Blood Count 4.53 M/mm3 (4.60-6.20)
[2024-06-28 15:38] LABS: MANUAL DIFFERENTIAL MANUAL DIFFERENTIAL (MANUAL DIFF)
[2024-06-28 15:40] LABS: VBG Base Excess 0.3 mmol/L (-2.4-2.3); VBG HCO3 24.9 mmol/L (23-30); VBG Oxygen Saturation 88.9 % (50-70); VBG PCO2 39.8 mmol/L (35-51); VBG PH 7.41 mmol/L (7.31-7.41); VBG PO2 53.4 mmol/L (28-40); VBG Total CO2 26.1 mmol/L (23-27)
--- NOTE | 2024-06-28 15:45 | ED_ITS ---
Discharge Plan Disposition Patient Disposition: Home, Self-Care Condition: Good Prescriptions Prescriptions: New amoxicillin-pot clavulanate 875-125 mg tablet 1 tab PO BID Qty: 20 0RF azithromycin 500 mg tablet 500 mg PO DAILY 5 Days Qty: 5 0RF prednisone 20 mg tablet 40 mg PO DAILY 5 Days Qty: 10 0RF No Action trazodone 150 mg tablet 300 mg PO HS Referrals Follow up/Referrals: Case Caceres MD [Primary Care Provider] - See instructions Activity Restrictions/Add. Instructions Additional Instructions/Restrictions: You were evaluated in the emergency department today. At this time, we are not sure of the etiology of your fever. It is possible you have a viral infection. Your labs and imaging are reassuring against bacterial infection. CT scans are reassuring as well. You have some incidental findings such as renal cysts, which are likely benign and nothing to worry about. You also have an enlarged prostate, for which I recommend follow-up with your primary care provider. Please return to the emergency department right away for new or worsening symptoms. I feel that you likely have a COPD exacerbation, so I prescribed you with steroids and antibiotics. Clinical Impressions Clinical Impression: Fever, Renal cyst, Enlarged prostate, Acute exacerbation of chronic obstructive pulmonary disease Instructions Patient Instructions: DI for Fever (Symptom) -- Adult Print Language Print Language: [place]awian Discharge ED Provider: Maral Dudley General Adult HPI General Chief complaint: Weakness Stated complaint: nervous, unable to stand, disoriented Time Seen by Provider: 06/28/24 15:01 Mode of Arrival: Ambulatory Source of Information: Patient Limitations: No Limitations Description of Symptoms (Recalled from ER Triage Doc. by RN): family and pt states confusion and unsteady on feet History of Present Illness HPI narrative: This patient is an 79-year-old male with a history of COPD presenting to the emergency department for evaluation with concern for general weakness that started today. Patient also has fever, cough, and increased work of breathing. According the patient, he was fine yesterday but woke up this morning feeling bad. Family states that he seems slightly confused, but patient is alert and oriented on my assessment. He complains that he feels nervous and just does not feel well overall, stating that he has no energy at all. He denies any other specific concerns or complaints but is notably coughing and wheezing with increased work of breathing. He is febrile, tachycardic, tachypneic with borderline oxygen saturation on room air. He does not wear oxygen at home. Related Data Home Medications ?Medication ?Instructions ?Recorded ?Confirmed trazodone 150 mg tablet 300 mg PO HS sleep 06/28/24 06/28/24 Previous Rx's ?Medication ?Instructions ?Recorded amoxicillin 875 mg-potassium 1 tab PO BID #20 tabs 06/28/24 clavulanate 125 mg tablet azithromycin 500 mg tablet 500 mg PO DAILY 5 days #5 tabs 06/28/24 prednisone 20 mg tablet 40 mg (2 x 20 mg) PO DAILY 5 days 06/28/24 #10 tabs Allergies Allergy/AdvReac Type Severity Reaction Status Date / Time No Known Allergies Allergy Verified 01/24/23 09:53 [facility] Disclaimer: The information contained in this section may have been updated after the patient was seen, as this information can be updated by other users. Medical History Sinus headache History of cataract Arthritis Insomnia COPD (chronic obstructive pulmonary disease) Surgical History History of cholecystectomy History of back surgery Family History Other Heart attack Social History Smoking Status: Current every day smoker tobacco type: cigarettes packs per day: 1 second hand exposure: Yes alcohol intake: never substance use type: denies use current occupational status: retired Travel in the last 8 weeks: None household members: spouse housing: house current occupation: construction current occupational exposures/hazards: No caffeine: Yes Have you lived/traveled outside [place] in past 30 days?: No Contact w/someone who lives/traveled outside US past 30 days?: No Exposure to someone with infectious disease in past 14 days?: No Do you have a fever (greater than 100.4 F or 38 C)?: No Have you tested positive for COVID-19: No Exposed to someone with COVID-19 in past 14 days?: No Do you have a sore throat?: No Do you have a cough?: No Do you have any weakness?: No Do you have any diarrhea?: No Are you experiencing any unusual bleeding?: No Do you have any muscle aches/pain?: No Do you have any abdominal pain?: No Are you experiencing loss of taste or smell?: No Other Medical History Have you received the Flu Vaccine for this season: No Have you received the Pneumonia Vaccine: No ROS Obtained: Yes All systems reviewed & no additional complaints except as documented Physical Exam General General appearance: alert and in distress Comment: In respiratory distress. Tachycardic, tachypneic, wheezing and borderline hypoxic. Febrile to 103.2 ?F. Head Head exam: atraumatic and normocephalic Eye Eye exam: Present normal appearance, PERRL and EOMI ENT ENT exam: Present mucous membranes dry and normal external ear exam Neck Neck exam: Present normal inspection, full ROM and trachea midline; Absent tenderness, meningismus or lymphadenopathy Chest Chest inspection: Present normal inspection and symmetric chest wall rise; Absent tenderness Respiratory Respiratory exam: Present respiratory distress, wheezes, accessory muscle use, prolonged expiratory phase and other (Significant increased work of breathing with diminished breath sounds bilaterally. Prolonged expiratory phase.); Absent stridor Cardiovascular Cardiovascular exam: Present normal rhythm and tachycardia Abdominal Exam Abdominal exam: Present soft; Absent distention, tenderness, guarding, rebound or rigidity Extremities Exam Extremities exam: Present normal inspection, full ROM and normal capillary refill; Absent tenderness or edema Back Exam Back exam: Present normal inspection and full ROM; Absent tenderness Neurological Exam Neurological exam: Present alert, oriented X3, CN II-XII intact and other (Generally weak without focal neurologic deficit); Absent motor sensory deficit Psychiatric Psychiatric exam: Present normal affect and normal mood Skin Skin exam: Present warm and dry Medical Decision Making Medical Records Medical records reviewed: Yes I reviewed the patient's medical records. Screening: Per USPSTF and CDC recommendations, given the prevalence of disease in our region, it is our hospital?s policy to screen for HIV and viral Hepatitis for all patients aged 18 and over and those with ongoing risk factors. Pasha Inquiry Pt receiving controlled substance: No Vital Signs: 06/28/24 14:57 06/28/24 16:20 06/28/24 16:26 Temperature 103.2 F H Temperature Source Oral Pulse Rate 100 H 90 Pulse Rate [Right Radial] 104 H Respiratory Rate 20 20 Blood Pressure 105/51 L 157/135 H Blood Pressure [Right Arm] 133/62 Blood Pressure Mean 69 140 Blood Pressure Mean [Right Arm] 85 Blood Pressure Source Blood Pressure Position 02 Sat by Pulse Oximetry 91 L 97 98 Oxygen Delivery Method Room Air 06/28/24 16:50 06/28/24 16:58 06/28/24 17:00 Temperature Temperature Source Pulse Rate 95 H 94 H 92 H Pulse Rate [Right Radial] Respiratory Rate Blood Pressure 91/46 L 99/38 L 89/42 L Blood Pressure [Right Arm] Blood Pressure Mean 61 66 64 Blood Pressure Mean [Right Arm] Blood Pressure Source Blood Pressure Position 02 Sat by Pulse Oximetry 90 L 92 L 91 L Oxygen Delivery Method 06/28/24 17:21 06/28/24 17:25 06/28/24 17:30 Temperature Temperature Source Pulse Rate 90 87 91 H Pulse Rate [Right Radial] Respiratory Rate Blood Pressure 107/44 L 97/81 L 91/45 L Blood Pressure [Right Arm] Blood Pressure Mean 70 83 60 Blood Pressure Mean [Right Arm] Blood Pressure Source Blood Pressure Position 02 Sat by Pulse Oximetry 92 L 93 L 94 L Oxygen Delivery Method 06/28/24 17:35 06/28/24 17:40 06/28/24 17:45 Temperature Temperature Source Pulse Rate 88 85 82 Pulse Rate [Right Radial] Respiratory Rate Blood Pressure 85/47 L 101/43 L 94/43 L Blood Pressure [Right Arm] Blood Pressure Mean 58 56 51 Blood Pressure Mean [Right Arm] Blood Pressure Source Blood Pressure Position 02 Sat by Pulse Oximetry 94 L 93 L 92 L Oxygen Delivery Method 06/28/24 17:50 06/28/24 17:56 06/28/24 18:00 Temperature Temperature Source Pulse Rate 88 82 85 Pulse Rate [Right Radial] Respiratory Rate Blood Pressure 101/47 L 109/60 L 94/54 L Blood Pressure [Right Arm] Blood Pressure Mean 65 72 64 Blood Pressure Mean [Right Arm] Blood Pressure Source Blood Pressure Position 02 Sat by Pulse Oximetry 93 L 94 L 94 L Oxygen Delivery Method 06/28/24 18:06 06/28/24 18:24 06/28/24 19:13 Temperature 98.6 F 98.8 F Temperature Source Oral Oral Pulse Rate 87 85 Pulse Rate [Right Radial] Respiratory Rate 20 Blood Pressure 117/58 L 112/58 L 115/73 Blood Pressure [Right Arm] Blood Pressure Mean 75 Blood Pressure Mean [Right Arm] Blood Pressure Source Automatic Cuff Blood Pressure Position Sitting 02 Sat by Pulse Oximetry 92 L Oxygen Delivery Method Room Air Lab Data Lab results reviewed: Yes I reviewed the patient's lab results. Lab Results 06/28/24 14:55: SARS-CoV-2 (PCR) Not detected, Influenza Type A (PCR) Not detected, Influenza Type B (PCR) Not detected, POC RSV Rapid Negative, RSV (PCR) Not detected, Rhinovirus (PCR) Not detected 06/28/24 14:57: Urine Color Yellow, Urine Appearance Slightly cloudy, Urine pH 7.5, Ur Specific [place] 1.020, Urine Protein Negative, Urine Glucose (UA) Negative, Urine Ketones Negative, Urine Blood Negative, Urine Nitrate Negative, Urine Bilirubin Negative, Urine Urobilinogen 0.2, Ur Leukocyte Esterase Negative, Urine RBC None, Urine WBC 5-10, Ur Squamous Epith Cells 3-5, Urine Bacteria 2+, SARS-CoV-2 (PCR) Not detected, Influenza A Untype (PCR) Not detected, Influenza Type B (PCR) Not detected 06/28/24 15:24: WBC 9.0, RBC 4.53 L, Hgb 13.7 L, Hct 40.4 L, MCV 89.2, MCH 30.2, MCHC 33.9, RDW 12.0, Plt Count 233, MPV 10.0, Neut % (Auto) 85.2 H, Lymph % (Auto) 8.6 L, [place] % (Auto) 4.7, Eos % (Auto) 0.4, Baso % (Auto) 0.8, Neut # (Auto) 7.7, Lymph # (Auto) 0.8, [place] # (Auto) 0.4, Eos # (Auto) 0.0, Baso # (Auto) 0.1, Total Counted 100, Neutrophils % (Manual) 88 H, Lymphocytes % (Manual) 8 L, Monocytes % (Manual) 4, Platelet Estimate Normal, RBC Morphology Normal, D-Dimer 1.40 H, Sodium 135 L, Potassium 4.2, Chloride 97 L, Carbon Dioxide 32 H, Anion Gap 10.2, BUN 14, Creatinine 0.80, Estimated Creat Clear 57, Estimated GFR 93, Est GFR ( Amer) 113, Glucose 106 H, Calcium 9.0, Total Bilirubin 0.6, AST 42, ALT 18, Alkaline Phosphatase 72, Troponin I < 0.01, C- Reactive Protein 45.6 H, NT-Pro-B Natriuret Pep 257, Total Protein 7.0, Albumin 4.1, Globulin 2.9, Albumin/Globulin Ratio 1.4, Procalcitonin 0.050, TSH 0.63, Thyroxine (T4) 5.9, HIV Ag/Ab Combo Qual Negative 06/28/24 15:38: VBG pH 7.41, VBG pCO2 39.8, VBG pO2 53.4 H, VBG HCO3 24.9, VBG Total CO2 26.1, VBG O2 Saturation 88.9 H, VBG Base Excess 0.3, VBG Lactic Acid 2.0 06/28/24 18:15: Troponin I < 0.01 06/28/24 15:24 06/28/24 15:24 Orders (Tests/Meds): ED MEDICATIONS Discontinued Medications Generic Name Dose Route Start Last Admin Trade Name Freq PRN Reason Stop Dose Admin Acetaminophen 1,000 mg 06/28/24 15:14 06/28/24 15:31 Acetaminophen 1,000mg/100ml Vial IV 06/28/24 15:15 1,000 mg ONCE ONE Administration Albuterol/Ipratropium 9 ml 06/28/24 15:14 06/28/24 16:04 Ipratropium/Albuterol 3 Ml Neb IH 06/28/24 15:15 9 ml ONCE ONE Administration Magnesium Sulfate 2 gm in 50 mls @ 50 mls/hr 06/28/24 15:14 06/28/24 16:05 Magnesium Sulfate 2gm/50ml Premix IV 06/28/24 16:13 50 mls/hr ONCE ONE Administration Lactated Ringer's 1,980 mls @ 990 mls/hr 06/28/24 15:14 06/28/24 15:32 Lactated Ringer's 1000 Ml Bag 30 ml/kg infuse over 2 hr (1980 ml) 06/28/24 17:13 990 mls/hr IV Administration .Q2H ONE Iopamidol 70 ml 06/28/24 17:07 06/28/24 17:14 Iopamidol-370 (76%);100ml Bottle IV 06/28/24 17:08 70 ml ONCE ONE Administration Methylprednisolone Sodium Succinate 125 mg 06/28/24 15:14 06/28/24 15:32 Methylprednisolone Sod Succ 125mg Vial IV 06/28/24 15:15 125 mg ONCE ONE Administration Sodium Chloride 3 ml 06/28/24 15:13 Sodium Chloride 3% 15ml Neb IH 07/28/24 15:12 ONCE PRN INDUCE SPUTUM COLLECTION Sodium Chloride 50 ml 06/28/24 17:07 06/28/24 17:14 0.9 % Sodium Chloride 50 Ml Vial IV 06/28/24 17:08 50 ml ONCE ONE Administration Sodium Chloride 10 ml 06/28/24 17:07 06/28/24 17:14 Sodium Chloride 0.9% 10ml Syr (Rad Only) IV 06/28/24 17:08 10 ml ONCE ONE Administration ORDERS Category Date Time Status CT abdomen pelvis w con Stat Cat Scan 06/28/24 16:[address] angio chest PE protocol Stat Cat Scan 06/28/24 16:[address] head/brain wo con Stat Cat Scan 06/28/24 16:49 Completed CXR --portable [XR chest portable] Stat Exams 06/28/24 15:13 Completed BNP [NT Pro Brain Natriuretic Pep.] Stat Lab 06/28/24 15:24 Completed CBC w/Auto Diff [Complete Blood Count Auto Diff] Stat Lab 06/28/24 15:24 Completed CMP [Comprehensive Metabolic Panel] Stat Lab 06/28/24 15:24 Completed CRP [C-Reactive Protein] Stat Lab 06/28/24 15:24 Completed D-Dimer Stat Lab 06/28/24 15:24 Completed Full Resp Panel w/COVID ([facility]) Routine Lab 06/28/24 16:49 Ordered HIV Combo Stat Lab 06/28/24 15:24 Completed Hep C Ab with Reflex to RNA Stat Lab 06/28/24 15:24 Received Mini Respiratory Panel Stat Lab 06/28/24 14:55 Completed Procalcitonin Stat Lab 06/28/24 15:24 Completed RSV Rapid Ab Screen Stat Lab 06/28/24 14:55 Completed Rapid PCR Covid and Flu A/B Stat Lab 06/28/24 14:57 Completed T4 (Thyroxine) Stat Lab 06/28/24 15:24 Completed TSH [Thyroid Stimulating Hormone] Stat Lab 06/28/24 15:24 Completed Trop I [Troponin I] Stat Lab 06/28/24 15:24 Completed Troponin I Q3H Lab 06/28/24 18:15 Completed UA [Urinalysis and Microscopic] Stat Lab 06/28/24 14:57 Completed Blood Culture Stat Micro 06/28/24 16:45 Received Urine Culture Stat Micro 06/28/24 14:57 Received VBG [Venous Blood Gas] Stat RT 06/28/24 15:38 Completed ECG Data Tracing #1: I reviewed this ECG and interpreted as documented below: Normal sinus rhythm with a ventricular rate of 92 bpm. No acute STEMI. Normal axis and intervals. ECG initial impression date: 06/28/24 ECG initial impression time: 16:58 Medical Decision Narrative: In summary, this patient is a 79-year-old male presenting to the Emergency Department for evaluation of general weakness. He is also noted to be febrile, tachycardic, tachypneic with significantly diminished breath sounds and increased work of breathing. Differential diagnoses considered include but are not limited to COPD exacerbation, pneumonia, viral syndrome, urinary tract infection, sepsis. Ruling out the most morbid conditions drove assessment. It should be noted patient's history includes COPD which is not at goal therapy. This complicates all aspects of care by increasing patient's risk for morbidity. On exam, the patient is in respiratory distress. He is also febrile, tachycardic, tachypneic. He is generally weak without focal neurologic deficits. He is alert, conversational. He has no meningismus. Workup included broad lab evaluation to evaluate for infectious versus metabolic causes of his symptoms. This included inflammatory markers, chest x-ray, urinalysis, viral swab. Patient was given sepsis bolus of IV fluids, IV acetaminophen. For severe COPD exacerbation with his increased work of breathing, I gave him DuoNebs x 3, IV magnesium, IV methylprednisolone. I independently interpreted chest x-ray prior to the radiologist read and noted large focal consolidation concerning for pneumonia. Please see their read for final interpretation. Labs were obtained that demonstrated reassuring CBC with no significant leukocytosis, normal procalcitonin, normal thyroid studies, normal lactic acid, elevated CRP which is nonspecific. Troponins negative x 2. COVID, flu, RSV negative. Patient's D-dimer was elevated, so ordered CTA PE protocol. Given fever with unknown source, I did order CT abdomen as well. I also ordered CT scan of the head without contrast given family noted concerned that he seemed a little bit confused earlier, but that has since resolved. CT scan is not concerning for any acute pathology but he does have enlarged prostate and renal cysts which I notified him of. No PE. No obvious infectious etiology On reassessment, patient had continued improvement after administration of IV fluids and interventions above. It is possible his confusion could have been related to COPD in the setting of viral illness. I am not finding any evidence of bacterial infection such as pneumonia based on my workup. He continues to improve on multiple subsequent reassessments and states that he is feeling much better and is feeling fine now. Vitals reassuring on cardiac telemetry. He is alert, oriented, at his baseline and breathing comfortably. I had shared decision-making with the patient and his sons. I stated that we could admit him given the severity of how ill he looked whenever he got here, but they stated they would prefer taking him home since he is feeling so much better. I did prescribe prednisone, Augmentin, azithromycin for COPD exacerbation. Strict return precautions were given as well as instructions for close follow-up with primary care. Patient was discharged after all questions were answered. Please note blood cultures were pending at time of discharge. Critical Care Critical Care Time Critical Care Time: Yes Attestation: On 06/28/24, the high probability of a clinically significant, sudden or life threatening deterioration of the following system(s) required my full and direct attention, intervention and personal management. The time I documented below is in addition to time spent performing reported procedures but includes the following listed in this critical care notation. Total Time Total Critical Care Time: 35
[2024-06-28] MEDS: IPRATROPIUM/ALBUTEROL 3 ML NEB 9 ML IH (16:04)
[2024-06-28] MEDS: MAGNESIUM SULFATE IN WATER 2 GM/50 ML PIGGYBACK IV (16:05)
[2024-06-28 16:06] LABS: Bilirubin,Urine Negative (Negative); Blood, Urine Negative (Negative); Color,Urine YELLOW (Yellow); Glucose,Urine (UA) Negative (Negative); Ketones,Urine Negative (Negative); Leukocyte Esterase,Urine Negative (Negative); Nitrate,Urine Negative (Negative); PH,Urine 7.5 (5.0-8.5); Protein,Urine Negative (Negative); Urobilinogen,Urine 0.2 EU/dl (0.2)
[2024-06-28 16:18] LABS: Appearance,Urine Slightly Cloudy (Clear)
[2024-06-28 16:34] LABS: Alanine Aminotransferase 18 U/L (12-78); Albumin Level 4.1 g/dl (3.5-5.0); Albumin/Globulin Ratio 1.4 (1.1-1.8); Alkaline Phosphatase 72 U/L (38-126); Aspartate Amino Transferase 42 U/L (17-59); Bilirubin,Total 0.6 mg/dl (0.2-1.3); Blood Urea Nitrogen 14 mg/dl (9-20); Carbon Dioxide 32 mmol/L (22.0-30.0); Chloride 97 mmol/L (98-107); Creatinine Clearance Estimated 57 mL/min (50-200); Estimated Glomerular Filt Rate 93 ml/min (>60); GFR (African American) 113 ML/MIN (>60); Globulin 2.9 g/dL (1.3-3.2); Glucose 106 mg/dl (74-100); Sodium 135 mmol/L (136-145)
[2024-06-28 16:40] LABS: C-Reactive Protein 45.6 mg/L (0-4)
[2024-06-28 16:46] LABS: NT Pro Brain Natriuretic Pep. 257 pg/mL (0-450)
--- NOTE | 2024-06-28 16:49 | CT_ITS ---
PROCEDURE INFORMATION: Exam: CTA Chest With Contrast Exam date and time: 06/28/2024 5:11 PM Age: 79 years old Clinical indication: Other: Sepsis unknown origin, AMS TECHNIQUE: Imaging protocol: Computed tomographic angiography of the chest with contrast. Exam focused on the arteries. 3D rendering (Not supervised by radiologist): MIP and/or 3D reconstructed images were created by the technologist. Radiation optimization: All CT scans at this facility use at least one of these dose optimization techniques: automated exposure control; mA and/or kV adjustment per patient size (includes targeted exams where dose is matched to clinical indication); or iterative reconstruction. Contrast material: ISO 370; Contrast volume: 70 ml; Contrast route: INTRAVENOUS (IV); COMPARISON: CR XR CHEST PORTABLE 06/28/2024 3:21 PM FINDINGS: Pulmonary arteries: No pulmonary embolism. Great vessels off aortic arch: Supra-aortic great vessel atherosclerosis. Aorta: Aortic atherosclerosis. Lungs: Moderate to severe centrilobular emphysema. Pleural spaces: Unremarkable. No pneumothorax. No pleural effusion. Heart: Unremarkable. No cardiomegaly. No pericardial effusion. Coronary arteries: Coronary artery atherosclerosis. Lymph nodes: Unremarkable. No enlarged lymph nodes. Bones/joints: Osteopenia. Degenerative changes of the spine. Soft tissues: Unremarkable. IMPRESSION: 1. No pulmonary embolism. 2. Atherosclerosis, including the coronary arteries. 3. Moderate to severe centrilobular emphysema. 4. Additional chronic/nonemergent findings as detailed above. 5. Upper abdomen reported with CT abdomen pelvis.
--- NOTE | 2024-06-28 16:49 | CT_ITS ---
PROCEDURE INFORMATION: Exam: CT Head Without Contrast Exam date and time: 06/28/2024 5:08 PM Age: 79 years old Clinical indication: Other: Sepsis unknown origin, AMS TECHNIQUE: Imaging protocol: Computed tomography of the head without contrast. Radiation optimization: All CT scans at this facility use at least one of these dose optimization techniques: automated exposure control; mA and/or kV adjustment per patient size (includes targeted exams where dose is matched to clinical indication); or iterative reconstruction. COMPARISON: No relevant prior studies available. FINDINGS: Limitations: Motion artifact. Brain: No acute intracranial hemorrhage, midline shift or mass effect. Diffuse brain parenchymal volume loss. Mild hypodensities within the cerebral white matter most consistent with chronic small-vessel ischemic changes. Suspected old bilateral basal ganglia lacunar infarcts. Cerebral ventricles: Ex vacuo dilatation of the ventricles. Paranasal sinuses: Minimal right maxillary and bilateral frontoethmoid sinus mucosal thickening. Mastoid air cells: Visualized mastoid air cells are well aerated. Bones: Unremarkable. No acute fracture. Soft tissues: Unremarkable. IMPRESSION: No acute intracranial findings.
--- NOTE | 2024-06-28 16:49 | CT_ITS ---
PROCEDURE INFORMATION: Exam: CT Abdomen And Pelvis With Contrast Exam date and time: 06/28/2024 5:11 PM Age: 79 years old Clinical indication: Abdominal pain; Additional info: Sepsis unknown origin, AMS TECHNIQUE: Imaging protocol: Computed tomography of the abdomen and pelvis with contrast. Radiation optimization: All CT scans at this facility use at least one of these dose optimization techniques: automated exposure control; mA and/or kV adjustment per patient size (includes targeted exams where dose is matched to clinical indication); or iterative reconstruction. Contrast material: ISOVUE; Contrast volume: 70 ml; Contrast route: IV; COMPARISON: CT ANGIO CHEST PE PROTOCOL 06/28/2024 5:11 PM FINDINGS: Limitations: Mild motion artifact. Liver: Normal. No mass. Gallbladder and biliary ducts: Cholecystectomy. Pancreas: Normal. No ductal dilation. Spleen: Normal. No splenomegaly. Adrenal glands: Normal. No mass. Kidneys and ureters: Bilateral simple appearing kidney cysts with the largest measuring 4 cm. Stomach and bowel: Colonic diverticulosis. No bowel dilation. No bowel wall thickening. Appendix: No evidence of appendicitis. Intraperitoneal space: Unremarkable. No free air. No significant fluid collection. Vasculature: Atherosclerosis. Lymph nodes: Unremarkable. No enlarged lymph nodes. Urinary bladder: Unremarkable as visualized. Reproductive: Enlarged prostate gland. Prostate calcifications. Bones/joints: Osteopenia. Degenerative changes of the spine, pelvis and hips. Soft tissues: Unremarkable. IMPRESSION: 1. No acute findings. 2. Additional chronic/nonemergent findings as detailed above. 3. Lower chest reported with dedicated CTA chest. COMMENTS: Consistent with the [employer]'s Incidental Findings Committee white paper (J Am Elvin Radiol 2018): Any incidental renal lesion less than 1 cm or classified as too small to characterize, or any incidental cystic renal lesion characterized as simple-appearing, is likely benign. No follow-up imaging is recommended for these lesions per consensus recommendations based on imaging criteria.
[2024-06-28 16:51] LABS: T4 (Thyroxine) 5.9 ug/dl (5.53-11.0)
--- NOTE | 2024-06-28 16:56 | ECG_ITS ---
APPROVED REPORT Exam: Resting ECG HR:92 bpm ECG Measurements Heart Rate 92 AXES KS 160 P 82 QRSd 80 QRS 67 QT 345 T 65 QTc 395 Conclusion SINUS RHYTHM NORMAL ECG No acute STEMI Electronically signed by : JUANA AVILES, 06/29/2024 00:10:31
[2024-06-28 16:57] LABS: Coronavirus 19, PCR Not Detected (NotDetected); Human Rhinovirus Not Detected (NotDetected); Influenza A, PCR Not Detected (NotDetected); Influenza B, PCR Not Detected (NotDetected); Respiratory Syncytial Virus Not Detected (NotDetected)
[2024-06-28 17:04] LABS: Thyroid Stimulating Hormone 0.63 uIU/mL (0.465-4.68)
[2024-06-28 17:09] LABS: Troponin I < 0.01 ng/ml (0.00-0.034)
[2024-06-28 17:13] LABS: Lymphocytes % 8 % (10-50); Monocytes % 4 % (2-9); Neutrophils % 88 % (42-76); Platelet Estimate Normal; RBC Morphology Normal; Total Cells Counted 100
[2024-06-28] MEDS: IOPAMIDOL-370 (76%);100ML BOTTLE 70 ML IV (17:14)
[2024-06-28] MEDS: SODIUM CHLORIDE 0.9% 10ML SYR (RAD ONLY) 10 ML IV (17:14)
[2024-06-28] MEDS: 0.9 % SODIUM CHLORIDE 50 ML VIAL IV (17:14)
[2024-06-28 17:34] LABS: Anion Gap 10.2 mEq/L (5-15); Potassium 4.2 mmoL/L (3.5-5.1)
[2024-06-28 17:56] LABS: Bacteria,Urine 2+ /lpf
[2024-06-28 18:34] LABS: RSV Rapid Ab Screen Negative (Negative)
[2024-06-28 19:26] LABS: Troponin I < 0.01 ng/ml (0.00-0.034)
[2024-06-28 20:01] LABS: HIV Combo NEGATIVE (Negative)
[2024-06-29 07:08] LABS: HCV Ab Non Reactive (Non Reactive)
--- NOTE | 2024-07-03 10:53 | PC.NURSE ---
BLOOD CULTURE DISCUSSED WITH DR EVANS. ATTEMPTED TO REACH PT, MESSAGE LEFT
== END 2024-06-28 19:14 | disposition home or self-care (01) ==
PROVIDERS: Emergency Provider Emergency Medicine; PCP Family Medicine
DX: J44.1 Chronic obstructive pulmonary disease with (acute) exacerbation (principal); N40.0 Benign prostatic hyperplasia without lower urinary tract symptoms; N28.1 Cyst of kidney, acquired; R53.1 Weakness; R41.82 Altered mental status, unspecified; R26.89 Other abnormalities of gait and mobility; R50.9 Fever, unspecified; R06.02 Shortness of breath; Z72.0 Tobacco use
CPT/HCPCS: 70450; 71045; 71275; 74177; 80053; 81001; 82803; 83880; 84145; 84436; 84443; 84484; 85007; 85025; 85027; 85378; 86140; 86803; 87040; 87077; 87086; 87389; 87631; 87636; 87807; 93005; 96361; 96365; 96374; 96375; 99291; J0131; J2919; J3475; J7120; J7620; Q9967

== ENCOUNTER 2024-11-19 13:44 | Outpatient (CLI) | payer MEDICARE, SELFPAY ==
--- OUTSIDE RECORDS SUMMARY | 2024-11-19 13:47 | XMS_ITS ---
Author Organization Unknown [facility] Start Date Provider Encounter for Check-up [phone] [facility]
--- NOTE | 2024-11-19 13:48 | XR_ITS ---
FINAL REPORT CLINICAL HISTORY: trauma FALL 1 WEEK AGO FINDINGS: LEFT CLAVICLE 2 views were obtained. There is no acute fracture or dislocation. Visualized joint spaces are normally aligned. Soft tissues are unremarkable. IMPRESSION: No acute bony abnormality. Reviewed, Interpreted and Dictated by Saroj Dean MD Transcribed by Ekaterina Cowan Authenticated and [facility]
--- NOTE | 2024-11-19 13:48 | XR_ITS ---
FINAL REPORT CLINICAL HISTORY: trauma FALL 1 WEEK AGO FINDINGS: LEFT SHOULDER 3 views of the left shoulder were obtained. There is no acute fracture or dislocation. Visualized joint spaces are normally aligned. Mild degenerative changes are noted. Soft tissues are unremarkable. IMPRESSION: No acute bony abnormality. Reviewed, Interpreted and Dictated by Saroj Dean MD Transcribed by Ekaterina Cowan Authenticated and [facility]
--- NOTE | 2024-11-19 13:48 | XR_ITS ---
FINAL REPORT CLINICAL HISTORY: pain FALL 1 WEEK AGO FINDINGS: RIGHT KNEE Two views demonstrate no acute fracture or dislocation. There are moderate degenerative changes. Chondrocalcinosis is noted. The soft tissues are unremarkable. IMPRESSION: No acute bony abnormality. Reviewed, Interpreted and Dictated by Saroj Dean MD Transcribed by Ekaterina Cowan Authenticated and [facility]
--- NOTE | 2024-11-19 13:48 | XR_ITS ---
FINAL REPORT CLINICAL HISTORY: pain FALL 1 WEEK AGO FINDINGS: LEFT KNEE There is no acute fracture or dislocation. There are moderate degenerative changes. There is no soft tissue abnormality. IMPRESSION: No acute fracture Reviewed, Interpreted and Dictated by Saroj Dean MD Transcribed by Ekaterina Cowan Authenticated and [facility]
== END 2024-11-19 23:59 | disposition home or self-care (01) ==
LOC: RAD 13:46
PROVIDERS: PCP Family Medicine; Visit Provider Orthopaedic Surgery
DX: S49.92XA Unspecified injury of left shoulder and upper arm, initial encounter (principal); M17.9 Osteoarthritis of knee, unspecified
CPT/HCPCS: 73000; 73030; 73560

== ENCOUNTER 2025-04-25 12:22 | Outpatient (CLI) | payer MEDICARE, SELFPAY ==
--- OUTSIDE RECORDS SUMMARY | 2025-04-25 12:25 | XMS_ITS | Clinical Summary ---
Author Organization [facility] Address [address] [place] [id number] Care Team Providers Care [employer] Name Role Phone Chito Rodas MD Primary Care Provider [phone] Social History Tobacco Use Types Packs/Day Years Used Date Smoking Tobacco: Never Assessed Abuse Screen Answer Date Recorded Unsafe at Home or Work/School Not on file Feels Threatened by Someone? Not on file 05/2023 Does Anyone Keep You from Co ntacting Others or Doint Things Outside the Home? Not on file 04/12/2023 Physical Sign of Abuse Present Not on file 1 Housing Stability Answer Date Recorded Current Living Arrangements Not on file 04/02 Potentially Unsafe Housing Conditions Not on haylie e 04/12/2023 Family and Community Support Answer Sven e Recorded Help with Day-to-Day Activities Not on file 04/12/2023 Lonely or Isolated Not on file 04/12/2023 Employment Answer Date Recorded Do you want help finding or keeping work or a alok b? Not on file 04/12/2023 Disabilities Answer Date Recorded Concentrating, Remembering, or Making Decisions Difficulty Not on file 04/12/2023 Doing Errands Independently Difficulty Not on fi le 04/12/2023 Education Answer Date Recorded Help with school or training? Not on file Preferred Language Not on file 04/12/2023 Sex and Gender Information Value Date Recorded Sex Assigned at Not on file Legal Sex Male 12:40 PM EDT Gender Identity Not on file Sexual Orientation Not on file Last Filed Vital Signs Vital Sign Reading Time Taken Comments Blood Pressure 138/87 02/10/2015 9:12 AM EDT Pulse 80 02/10/2015 9:12 AM EDT Temperature 36.6 C (97.8 F) 02/10/2015 9:12 AM EDT Respiratory Rate - - Oxygen Saturation 94% 02/10/2015 9:12 AM EDT Inhaled Oxygen Concentration - - Weight 69.4 kg (153 lb) 02/10/2015 9:12 AM EDT Height 170.2 cm (5' 7 ) 02/10/2015 9:12 AM EDT Body Mass Index 23.96 02/10/2015 9:12 AM EDT Plan of Treatment Health Maintenance Due Date Last Done Comments ANNUAL PHYSICAL 1944 TDAP/TD VACCINES (1 - Tdap) 1963 Pneumococcal Vaccine 50+ (1 of 1 - PCV) 1994 ZOSTER VACCINE (1 of 2) 1994 RSV Vaccine - Adults (1 - 1-dose 75+ series) 9 INFLUENZA VACCINE 01/31/2025 COVID-19 Vaccine (1 - 2023- season) 2025 Care Teams [employer] Relationship Specialty Start Date End Date Chito Rodas MD [address] [place] [address] PCP - General 02/12/15
--- NOTE | 2025-04-25 12:26 | XR_ITS ---
FINAL REPORT CLINICAL HISTORY: dyspnea ..cough x months COMPARISON: 06/28/2024 FINDINGS: No acute pulmonary density is evident. Changes of emphysema are present. There is no evidence of effusion or other pleural disease. Chronic interstitial changes are present as well. The mediastinum has a normal appearance. The cardiac silhouette is unremarkable. IMPRESSION: Changes of emphysema and chronic interstitial changes are noted, without acute abnormality. Reviewed, Interpreted and Dictated by Saroj Dean MD Transcribed by Amanda Wilcox Authenticated and [facility]
[2025-04-25 15:01] LABS: Hematocrit 43.1 % (42.0-52.0); Hemoglobin 14.1 g/dL (14.1-18.0); Immature Granulocytes % 0.3 %; Mean Corpuscular HGB Conc 32.7 g/dL (31.8-35.4); Mean Corpuscular Hemoglobin 28.7 pg (27.0-31.2); Mean Corpuscular Volume 87.6 fl (80-94); Nucleated Red Blood Cells % 0 %; Platelet Count 394 K/mm3 (142-424); Red Blood Count 4.92 M/mm3 (4.60-6.20); Red Cell Distribution Width-SD 42.5 fL; White Blood Count 10.0 K/mm3 (4.8-10.8)
[2025-04-25 15:10] LABS: Chloride 95 mmol/L (98-107)
[2025-04-25 15:11] LABS: Albumin Level 3.9 g/dl (3.5-5.0); Potassium 4.6 mmoL/L (3.5-5.1); Sodium 129 mmol/L (136-145)
[2025-04-25 15:14] LABS: Alanine Aminotransferase 13 U/L (12-78); Albumin/Globulin Ratio 1.1 (1.1-1.8); Alkaline Phosphatase 88 U/L (38-126); Anion Gap 8.6 mEq/L (5-15); Aspartate Amino Transferase 31 U/L (17-59); Bilirubin,Total 0.4 mg/dl (0.2-1.3); Blood Urea Nitrogen 19 mg/dl (9-20); Calcium 8.7 mg/dl (8.4-10.2); Carbon Dioxide 30 mmol/L (22.0-30.0); Cholesterol 175 mg/dl (140-200); Creatinine,Serum 0.70 mg/dl (0.66-1.25); Estimated Glomerular Filt Rate 109 ml/min (>60); GFR (African American) 131 ML/MIN (>60); Globulin 3.4 g/dL (1.3-3.2); Glucose 98 mg/dl (74-100); Total Protein,Serum 7.3 g/dl (6.3-8.2); Triglycerides 81 mg/dl (30-150)
[2025-04-25 15:15] LABS: HDL Cholesterol 45 mg/dl (40-60)
[2025-04-25 15:19] LABS: NT Pro Brain Natriuretic Pep. 212 pg/mL (0-450)
== END 2025-04-25 23:59 | disposition home or self-care (01) ==
LOC: RAD 12:23
PROVIDERS: PCP Family Medicine; Visit Provider Family Medicine
DX: J43.9 Emphysema, unspecified (principal); J84.9 Interstitial pulmonary disease, unspecified; R39.89 Other symptoms and signs involving the genitourinary system
CPT/HCPCS: 71046; 80053; 80061; 83880; 85025; 87086; G0103